=== PATIENT | female | born 1955 | race Caucasian/White ===

== ENCOUNTER 2018-10-10 10:53 | Inpatient (IN) | END 2018-10-11 16:40 | disposition home or self-care (01) | DRG 581 ==

== ENCOUNTER 2018-11-03 15:47 | Inpatient (IN) | payer BC ==
[~2018-11-03] VITALS: Ht 157.5 cm; Wt 65.6 kg
[~2018-11-03 15:47] MED LIST: ACET500C5 PO; DOCU-144 PO; LEVO100T82 PO
[2018-11-03] MEDS: morphine 4 MG/ML VIAL IV STA ×2 (18:35→18:59)
[2018-11-03] MEDS ORDERED: SOD CHLORIDE 0.9% 1,000 ML IV STA (18:35)
[2018-11-03] MEDS ORDERED: CEFTRIAXONE 1 GM/50 ML (PMX) 50 ML IVPB STA (18:35)
[2018-11-03] MEDS: ONDANSETRON 4 MG INJ IV STA ×2 (18:35→18:59)
[2018-11-03] MEDS ORDERED: CLIN300C10 PO (18:53)
--- NOTE | 2018-11-03 19:03 | ERD ---
ER Documentation Chief Complaint Chief Complaint Sent from Dr Martinez office for Eval and Admit Postop problems HPI 63-year-old woman complains of left lateral breast pain, swelling, redness, recent purulent discharge status post partial left mastectomy about 3 weeks ago. She was referred here by her surgeon's office for evaluation and admission. She has been using clindamycin 3 times daily for the last 5-6 days without relief. She denies fevers or chills, no chest pain or shortness of breath, no headache or blurry vision, no vomiting or diarrhea ROS All systems reviewed and are negative except as per history of present illness. Medications Home Meds Active Scripts Acetaminophen* (Tylophen*) 500 Mg Capsule, 500 MG PO Q6H PRN for PAIN for 30 Days, TAB Prov:MIMA GARCÍA MD 10/11/18 Reported Medications Clindamycin Hcl* (Clindamycin Hcl*) 300 Mg Capsule, 300 MG PO TID, CAP FOR 10 DAYS,END DATE 11/07/18 11/03/18 Levothyroxine Sodium* (Levoxyl*) 100 Mcg Tablet, 100 MCG PO BEFORE BREAKFAST, #30 TAB 10/10/18 Discontinued Scripts Docusate Sodium* (Colace*) 100 Mg Capsule, 100 MG PO BID for 10 Days, #60 CAP Prov:MIMA GARCÍA MD 10/11/18 Allergies Allergies: Coded Allergies: No Known Allergy (Unverified , 11/03/18) PMhx/Soc Hypothyroidism, breast cancer History of Surgery: No Anesthesia Reaction: No Hx Neurological Disorder: No Hx Respiratory Disorders: No Hx Cardiac Disorders: No Hx Psychiatric Problems: No Hx Miscellaneous Medical Probl: Yes (l. breast mass) Hx Alcohol Use: No Hx Substance Use: No Hx Tobacco Use: No FmHx Family History: No diabetes Physical Exam Vitals Vital Signs Date Temp Pulse Resp B/P (MAP) Pulse Ox O2 O2 Flow FiO2 Time Delivery Rate 11/03/18 97.4 72 20 152/69 97 15:52 (96) Physical Exam Const: No acute distress, afebrile Head: Atraumatic Eyes: Normal Conjunctiva ENT: Normal External Ears, Nose and Mouth. Neck: Full range of motion. No meningismus. Resp: Clear to auscultation bilaterally Cardio: Regular rate and rhythm, no murmurs Abd: Soft, non tender, non distended. Normal bowel sounds Skin: Skin over the left lateral mastectomy scar is indurated, erythematous, tender to touch with mild purulent discharge Back: No midline or flank tenderness Ext: No cyanosis, or edema Neur: Awake and alert x3, no focal deficits or facial asymmetry Psych: Normal Mood and Affect Result Diagram: 11/03/18190911/03/181909 Results 24 hrs Laboratory Tests Test 11/03/18 19:10 White Blood Count 8.1 10^3/ul Red Blood Count 4.22 10^6/ul Hemoglobin 12.6 g/dl Hematocrit 37.8 % Mean Corpuscular Volume 89.6 fl Mean Corpuscular Hemoglobin 29.9 pg Mean Corpuscular Hemoglobin Concent 33.3 g/dl Red Cell Distribution Width 12.9 % Platelet Count 279 10^3/UL Mean Platelet Volume 10.9 fl Immature Granulocytes % 0.900 % Neutrophils % 67.0 % Lymphocytes % 24.0 % Monocytes % 6.0 % Eosinophils % 1.5 % Basophils % 0.6 % Nucleated Red Blood Cells % 0.0 /100WBC Immature Granulocytes # 0.070 10^3/ul Neutrophils # 5.4 10^3/ul Lymphocytes # 1.9 10^3/ul Monocytes # 0.5 10^3/ul Eosinophils # 0.1 10^3/ul Basophils # 0.1 10^3/ul Nucleated Red Blood Cells # 0.0 10^3/ul Sodium Level 143 mmol/L Potassium Level 4.9 mmol/L Chloride Level 105 mmol/L Carbon Dioxide Level 22 mmol/L Anion Gap 16 Blood Urea Nitrogen 14 mg/dl Creatinine 0.44 mg/dl Est Glomerular Filtrat Rate mL/min > 60 mL/min Glucose Level 110 mg/dl Calcium Level 9.5 mg/dl Current Medications Medications Dose Sig/Clover Start Time Status Last (Trade) Ordered Route PRN Stop Time Admin Dose Reason Admin Sodium 1,000 ml @ Q1H STAT 11/03/18 DC 11/03/18 Chloride 1,000 mls/hr IV 18:35 18:58 11/03/18 19:34 Morphine 4 mg ONCE STAT 11/03/18 DC Sulfate IV 18:35 (morphine) 11/03/18 18:40 Ondansetron 4 mg ONCE STAT 11/03/18 DC HCl (Zofran IV 18:35 Inj) 11/03/18 18:40 Ceftriaxone 50 ml @ ONCE STAT 11/03/18 DC 11/03/18 Sodium 100 mls/hr IVPB 18:35 18:59 11/03/18 19:04 Procedures/MDM IV line was established patient was placed on secured entrance monitor rhythm strip revealed a sinus rhythm at about 80 bpm with upright P and T waves. Patient was afebrile I administered 1 L normal saline IV, ceftriaxone 1 g IV and vancomycin 1 g IV, morphine 4 mg IV, Zofran 4 mg IV. Chest X-ray 1V Interpreted by me: Soft Tissue: No acute abnormalities Bones: No acute abnormalities Mediastinum/Cardiac Silhouette/Lungs: No acute abnormalities CBC and electrolytes were normal, coagulation profile normal. I administered 1 L normal saline IV, morphine 4 mg IV, Zofran 4 mg IV, ceftriaxone 1 g IV, vancomycin 1 g IV. Patient will be admitted to [facility] for continued medical management, IV antibiotics, and possible surgical debridement. Departure Diagnosis: Primary Impression: Cellulitis of breast Additional Impression: Postoperative infection Encounter type: initial encounter Postoperative infection type: superfi cial incisional surgical site Qualified Codes: T81.41XA - Infection following a procedure, superficial incisional surgical site, initial encounter Condition: STEFFANIE Bazzi MD Nov 03, 2018 19:03
[2018-11-03] MEDS ORDERED: VANCOMYCIN 1 GM (PMX) 250 ML IVPB ONE (19:30)
[2018-11-03 21:20] VITALS: BP 142/63; PULSE 80; RESP 18
--- NOTE | 2018-11-03 21:30 | NUR ---
RN NOTES ADMITTED PT FROM ER,PT AWAKE ALERT X4.ADIMITTED WITH LEFT BREAST CELLULITIS.PT S/P LEFT BREAST MASS REMOVAL.DENIES ANY PAIN AT THIS TIME.WILL CONTINUE PLAN OF CARE.NEEDS ATTENDED
[2018-11-03 22:01] VITALS: Ht 157.5 cm; Wt 65.6 kg
[2018-11-03] MEDS ORDERED: HYDROCODONE/APAP (5/325) TAB PO PRN (22:30)
[2018-11-03] MEDS ORDERED: SOD CHLORIDE 0.9% 1,000 ML IV SCH (22:30)
[2018-11-03] MEDS ORDERED: ACETAMINOPHEN 500 MG TAB PO PRN (22:30)
[2018-11-04 02:05] VITALS: BP 120/58; PULSE 75; RESP 16
[2018-11-04] MEDS: LEVOTHYROXINE 100 MCG TAB PO SCH (06:03)
--- NOTE | 2018-11-04 06:27 | NUR ---
SHIFT REPORT PT STABLE DURING THE NIGHT,DENIES ANY PAIN.SLEPT WELL.CONTINUE ON IV ANTIBIOTIC ORDERED.WILL CONTINUE TO MONITOR.NEEDS ATTENDED.CALL LIGHT AT REACH.HOURLY ROUNDING DONE
[2018-11-04 07:28] VITALS: BP 129/72; PULSE 71; RESP 18
[2018-11-04] MEDS ORDERED: CEFTRIAXONE 1 GM INJ IVPB SCH (09:00)
[2018-11-04] MEDS ORDERED: CLINDAMYCIN 300 MG CAP PO SCH (09:00)
[2018-11-04] MEDS ORDERED: CLINDAMYCIN 300 MG/D5W (PMX) 50 ML IVPB SCH (10:30)
[2018-11-04] MEDS ORDERED: NS + KCL 20 MEQ 1,000 ML IV SCH (10:30)
--- NOTE | 2018-11-04 11:03 | HP ---
MINORALYSSASelenaROSA MARIA 11/04/18 1102: Date/Time of Note Date/Time of Note DATE: 11/04/18 TIME: 11:02 Assessment/Plan VTE Prophylaxis Pharmacological prophylaxis: NA/contraindicated Pharm contraindication: surgical contra Lines/Catheters IV Catheter Type (from Nrsg): Peripheral IV Urinary Cath still in place: No Assessment/Plan Hospital Course 1. Left breast postop pain and possible abscess 2. S/pt left partial mastectomy and axillary dissection and using sentinel lymph node. 3. Hypothyroidism. 4. Constipation 5. hx of breast cancer. 6. Anemia Assessment/Plan - med/surg. -MRI left breast without contrast -c/w IV fluids, pain medications. -surgical consult by Dr. Cxo. -Gi prophylaxis start Protonix -NPO -DVT prophylaxis SCD, possible surgical interventions Result Diagram: 11/04/18 0554 11/04/18 0554 Results 24hrs Laboratory Tests Test 11/03/18 19:10 11/03/18 20:03 11/04/18 05:54 White Blood Count 8.1 5.8 # Red Blood Count 4.22 3.78 L Hemoglobin 12.6 11.4 L Hematocrit 37.8 33.5 L Mean Corpuscular Volume 89.6 88.6 Mean Corpuscular Hemoglobin 29.9 30.2 Mean Corpuscular 33.3 34.0 Hemoglobin Concent Red Cell Distribution Width 12.9 13.1 Platelet Count 279 275 Mean Platelet Volume 10.9 H 10.1 Immature Granulocytes % 0.900 H 0.500 H Neutrophils % 67.0 62.6 Lymphocytes % 24.0 28.6 Monocytes % 6.0 6.1 Eosinophils % 1.5 1.7 Basophils % 0.6 0.5 Nucleated Red Blood Cells % 0.0 0.0 Immature Granulocytes # 0.070 H 0.030 Neutrophils # 5.4 3.6 Lymphocytes # 1.9 1.7 Monocytes # 0.5 0.4 Eosinophils # 0.1 0.1 Basophils # 0.1 0.0 Nucleated Red Blood Cells # 0.0 0.0 Sodium Level 143 144 Potassium Level 4.9 4.1 Chloride Level 105 108 Carbon Dioxide Level 22 26 Anion Gap 16 H 10 # Blood Urea Nitrogen 14 11 Creatinine 0.44 0.50 Est Glomerular Filtrat > 60 > 60 Rate mL/min Glucose Level 110 103 Calcium Level 9.5 9.0 Prothrombin Time 12.8 Prothrombin Time Ratio 1.0 INR International 0.95 Normalized Ratio Activated Partial Thromboplast 28.0 Time HPI/ROS Admit Date/Time Admit Date/Time Nov 03, 2018 at 19:24 Hx of Present Illness This is a 63-year-old female with a past medical history of hypothyroidism, left breast cancer with s/p radical mastectomy and axillary dissection presented in ER with purulent discharge status post partial left mastectomy about 3 weeks ago. She left with 2 drains that were consecutively removed by dr Cox. After that in 2 days she developed chills and pain, there were some serous discharge. She was referred here by her surgeon's office for evaluation and admission. She has been using clindamycin 3 times daily for the last 5-6 days without relief. ROS pain in left breast scar PMH/Family/Social Past Medical History Medications Current Medications Acetaminophen/ Hydrocodone Bitart ([place] (5/325)) 1 tab Q6H PRN PO MODERATE PAIN LEVEL 4-6; Start 11/03/18 at 22:30 Levothyroxine Sodium (Synthroid) 100 mcg DAILY@06 PO Last administered on 11/04/18at 06:03; Admin Dose 100 MCG; Start 11/04/18 at 06:00 Acetaminophen (Tylenol Tab) 500 mg Q6H PRN PO MILD PAIN(1-3)OR ELEVATED TEMP; Start 11/03/18 at 22:30 Ceftriaxone Sodium 50 ml @ 100 mls/hr Q24H IVPB ; Start 11/04/18 at 19:00 Clindamycin HCl/ Dextrose 50 ml @ 100 mls/hr Q6 IVPB Last administered on 11/04/18at 10:42; Admin Dose 100 MLS/HR; Start 11/04/18 at 10:30 Potassium Chloride/Sodium Chloride 1,000 ml @ 125 mls/hr Q8H IV ; Start 11/04/18 at 10:30 Coded Allergies: No Known Allergy (Unverified , 11/03/18) Past Surgical History Past Surgical Hx: other (left breast mastectomy) Social History Alcohol Use: none Smoking Status: Never smoker Drug Use: none Exam/Review of Systems Vital Signs Vitals Vital Signs Date Temp Pulse Resp B/P (MAP) Pulse Ox O2 O2 Flow FiO2 Time Delivery Rate 11/04/18 98.6 71 18 129/72 99 07:28 (91) 11/03/18 Room Air 20:49 Intake and Output 11/03/18 11/03/18 11/04/18 1414:59 22:59 06:59 IntakeIntake Total 240 ml 120 ml BalanceBalance 240 ml 120 ml Exam Exam breast left with surgical scars and focal redness, no d/c Constitutional: alert, oriented Respiratory: clear to auscultation Cardiovascular: regular rate and rhythm Gastrointestinal: soft MIMA GARCÍA MD 11/04/18 1630: Assessment/Plan Assessment/Plan Assessment/Plan Seen and examined with patient financial representative IV antibiotics Surgical drainage tomorrow Result Diagram: 11/04/18 0554 11/04/18 0554 PMH/Family/Social Past Medical History Coded Allergies: No Known Allergy (Unverified , 11/03/18) ROSA MARIA KLEIN Nov 04, 2018 11:02 MIMA GARCÍA MD Nov 04, 2018 16:30
[2018-11-04] MEDS ORDERED: hydrALAzine 20 MG INJ IV PRN (13:30)
[2018-11-04] MEDS ORDERED: VANCOMYCIN IV PER PHARMACY XX SCH (14:30)
--- NOTE | 2018-11-04 14:34 | NUR ---
VANCOMYCIN PER RX 63 yo FEMALE Allergy: NKA 52 65.6kg CC: left breast post-op abscess Other antibiotics: Ceftriaxone Labs: WBC 5.8 BUN and creatinine 11/0.5 A/P: Vancomycin 750mg ivpb q12h Addendum: 11/04/18 at 1442 by UZIEL MCDOWELL [facility] A/P: Change Vancomycin 750mg ivpb q12h to 1250mg ivpb q24h
[2018-11-04] MEDS ORDERED: VANCOMYCIN 750 MG (PMX) 250 ML IVPB SCH (15:00)
[2018-11-04] MEDS: PANTOPRAZOLE 40 MG INJ IV SCH (16:08)
[2018-11-04] MEDS: VANCOMYCIN 1.25 GM in SOD CHLORIDE 0.9% 250 ML IVPB SCH (16:08)
[2018-11-04 16:17] VITALS: BP 118/79; PULSE 72; RESP 20
--- NOTE | 2018-11-04 17:11 | CONS ---
DATE OF ADMISSION: 11/03/2018 DATE OF CONSULTATION: 11/04/2018 REASON FOR CONSULTATION: Postop complications on the left breast, possible abscess formation. HISTORY OF PRESENT ILLNESS AND CHIEF COMPLAINT: This is a 63-year-old female, who apparently had lef t breast partial mastectomy for cancer with axillary about 3 to 4 weeks ago in this hospital. The jarocho crowder had 2 Efrain-Bell drains, which was removed about 2 weeks ago and following removal of that, a couple of days later, the patient started having fever and chills and gradually felt swelling on th e site of the breast. So, referred to Dr. Cox' office and apparently they aspirated some fluid and they started the patient on antibiotic, clindamycin 300 mg p.o. t.i.d., but apparently it did not he lp and the patient felt some pain and also some swelling and some redness and yesterday, the pain was much more. So, she came to the office, and then from there was sent to the emergency room, was admi tted for IV antibiotic treatment. PAST MEDICAL HISTORY: As was mentioned, the patient has history of hypothyroidism and is on suppleme ntal medications: Also, the patient has had history of recent operation for cancer of left breast. ALLERGIES: NO KNOWN ALLERGIES. REVIEW OF SYSTEMS: As was mentioned above. PHYSICAL EXAMINATION: GENERAL: The patient is alert, awake, oriented x3. VITAL SIGNS: Today, temperature maximum 98.6, heart rate 75, respirations 18, blood pressure 129/72, saturation 99% on room air. On admission last night, temperature maximum was 99 and heart rate was maximum 88.0. HEAD: Normocephalic. NECK: Trachea is in midline. HEART: Regular rhythm. No murmur. LUNGS: Clear to auscultation. ABDOMEN: Soft. BREASTS: Chest wall on the left side, there is evidence of a scar of recent operation. There is an area of induration, cellulitis, redness and mild tenderness at the clip. The patient states that thi s was much more tender before and the redness was much more, but since she has come to the hospital s nicolás last night, now, the redness has decreased and tenderness has decreased. The area maybe is abou t 4 cm x 2.3 cm and irregular borders. There is no fluctuation at this time. The wound was cleaned with alcohol by myself. Dressing was changed and upon squeezing on the wound, there was about a coup le of drops of yellowish fluid, but it did not look like very purulent came out. The culture was ronal en from that one and sent for evaluation. EXTREMITIES: Lower extremity negative. LABORATORY DATA: On admission, WBC was 8100 with 67% segmented, hemoglobin 12.6, hematocrit 37.8. T alanis morning, WBC is 5800 with 62% segmented, normal differential, hemoglobin 11.4, hematocrit 33. C hemistry: The same is normal sodium, potassium, BUN, and creatinine. IMPRESSION: Here is a 63-year-old lady status post left breast partial mastectomy with axillary diss ection, who has had Efrain-Bell drains in place for 2 weeks and then was removed 2 weeks ago. The patient now presents with some cellulitis, erythema, redness and tenderness, which has got to about 3 0% better since admission last night. On admission from the emergency room, the patient received cef triaxone and vancomycin IV. PLAN: Therefore, at this time, I think the patient has only cellulitis with minimal induration and s light phlegmon subcutaneously. No abscess. I do not feel presence of any abscess and it appears kalen t the patient is responding to IV antibiotics. Therefore, we are going to continue ceftriaxone and v ancomycin IV, and we will keep the patient n.p.o. tonight after midnight. We will schedule the patie nt for possible I and D tomorrow. I will reevaluate the patient tomorrow, on Wednesday morning, and jewell driscoll a final decision on that time whether to continue antibiotics or proceed with incision. Dictated By: JUDSON SOLIMAN MD PS/NTS Conf#: [id number] DID#: [id number] CC: JOY CORTEZ MD;*EndCC*
[2018-11-04] MEDS: SOD CHLORIDE 0.9% 1,000 ML IV SCH (18:19)
--- NOTE | 2018-11-04 18:39 | NUR ---
END OF SHIFT NOTES: PT STABLE, ALERT & ORIENTED X4. NO DISTRESS NOTED. PENDING MRI LEFT BREAST, PENDING SX, NPO AFTER MIDNIGHT, PT AWARE OF PLAN OF CARE, AT BEDSIDE. INSTRUCTED PT TO CALL FOR ASSISTANCE. VS WNL.HOURLY ROUNDING. CALL LIGHT WITHIN REACH.ALL NEEDS MET. NO NEW COMPLAINTS.
[2018-11-04 19:59] VITALS: BP 139/64; PULSE 75; RESP 18
[2018-11-04] MEDS: CEFTRIAXONE 1 GM/50 ML (PMX) 50 ML IVPB SCH (20:39)
--- NOTE | 2018-11-04 22:48 | NUR ---
scheduled surgery for kay- cancelled dr. thibodeaux called. order to cancel surgery, to notify patient and nursing manufacturing supervisor 2nd shift and resume diet in am. patient notified- was happy about it. nursing manufacturing supervisor 2nd shift sapna informed. primary nurse informed.
[2018-11-05 01:53] VITALS: BP 126/60; PULSE 63; RESP 18
[2018-11-05] MEDS: SOD CHLORIDE 0.9% 1,000 ML IV SCH ×3 (02:30→19:09)
--- NOTE | 2018-11-05 05:12 | NUR ---
SHIFT REPORT NO SIGNIFICANT CHANGE OF CONDITION NOTED.STABLE DURING THE NIGHT.NO DRAINAGE NOTED ON THE LEFT BREAST INCISION SITE.DENIES ANY PAIN.WILL CONTINUE IV ANTIBIOTIC ORDERED.NEEDS ATTENDED.CALL LIGHT AT REACH.
[2018-11-05] MEDS: PANTOPRAZOLE 40 MG INJ IV SCH (06:02)
[2018-11-05] MEDS: LEVOTHYROXINE 100 MCG TAB PO SCH (06:02)
[2018-11-05 07:39] VITALS: BP 128/63; PULSE 68; RESP 16
[2018-11-05 13:48] VITALS: BP 133/62; PULSE 68; RESP 17
--- NOTE | 2018-11-05 14:12 | PN ---
Date/Time of Note Date/Time of Note DATE: 11/05/18 TIME: 14:12 Assessment/Plan VTE Prophylaxis Risk score (from [facility] [place]0 risk: 2 SCD applied (from [facility] [place]): Yes Pharmacological prophylaxis: NA/contraindicated Pharm contraindication: surgical contra Lines/Catheters IV Catheter Type (from [facility]): Peripheral IV Urinary Cath still in place: No Assessment/Plan Hospital Course 1. Left breast postop pain and possible abscess 2. S/pt left partial mastectomy and axillary dissection and using sentinel lymph node. 3. Hypothyroidism. 4. Constipation 5. hx of breast cancer. 6. Anemia Assessment/Plan - med/surg. -iron supplement -staph. infection is growing from the wound -c.w vanco and Ceftriaxone. -MRI left breast without contrast pending -c/w pain medications. -surgical consult by Dr. Cox. -Gi prophylaxis Protonix -regular diet -DVT prophylaxis SCD, possible surgical interventions Result Diagram: 11/05/18 0444 11/05/18 0444 Results 24hrs Laboratory Tests Test 11/04/18 19:30 11/05/18 04:44 Urine Test NEGATIVE White Blood Count 5.3 Red Blood Count 3.82 L Hemoglobin 11.4 L Hematocrit 33.3 L Mean Corpuscular Volume 87.2 Mean Corpuscular Hemoglobin 29.8 Mean Corpuscular Hemoglobin Concent 34.2 Red Cell Distribution Width 13.2 Platelet Count 268 Mean Platelet Volume 10.2 Immature Granulocytes % 0.400 Neutrophils % 60.2 Lymphocytes % 29.6 Monocytes % 6.3 Eosinophils % 2.7 Basophils % 0.8 Nucleated Red Blood Cells % 0.0 Immature Granulocytes # 0.020 Neutrophils # 3.2 Lymphocytes # 1.6 Monocytes # 0.3 Eosinophils # 0.1 Basophils # 0.0 Nucleated Red Blood Cells # 0.0 Sodium Level 142 Potassium Level 3.8 Chloride Level 110 Carbon Dioxide Level 25 Anion Gap 7 Blood Urea Nitrogen 11 Creatinine 0.50 Est Glomerular Filtrat Rate mL/min > 60 Glucose Level 111 Hemoglobin A1c 5.5 Calcium Level 8.9 Subjective 24 Hr Interval Summary Constitutional: no complaints, improved Exam/Review of Systems Vital Signs Vitals Vital Signs Date Temp Pulse Resp B/P (MAP) Pulse Ox O2 O2 Flow FiO2 Time Delivery Rate 11/05/18 98.5 68 17 133/62 97 Room Air 13:48 (85) Intake and Output 11/04/18 11/04/18 11/05/18 1515:00 23:00 07:00 IntakeIntake Total 100 ml 1735 ml 1050 ml BalanceBalance 100 ml 1735 ml 1050 ml Exam left breast with surgical scars and redness Constitutional: alert, oriented Respiratory: clear to auscultation Cardiovascular: regular rate and rhythm Gastrointestinal: soft Medications Medications Current Medications Acetaminophen/ Hydrocodone Bitart ([place] (5/325)) 1 tab Q6H PRN PO MODERATE PAIN LEVEL 4-6; Start 11/03/18 at 22:30 Levothyroxine Sodium (Synthroid) 100 mcg DAILY@06 PO Last administered on 11/05/18at 06:02; Admin Dose 100 MCG; Start 11/04/18 at 06:00 Acetaminophen (Tylenol Tab) 500 mg Q6H PRN PO MILD PAIN(1-3)OR ELEVATED TEMP; Start 11/03/18 at 22:30 Ceftriaxone Sodium 50 ml @ 100 mls/hr Q24H IVPB Last administered on 11/04/18at 20:39; Admin Dose 100 MLS/HR; Start 11/04/18 at 19:00 Pantoprazole (Protonix Iv) 40 mg DAILY@06 IV Last administered on 11/05/18at 06:02; Admin Dose 40 MG; Start 11/04/18 at 13:00 Hydralazine HCl (Apresoline) 5 mg Q6H PRN IV SBP above 160; Start 11/04/18 at 13:30 Vancomycin HCl (Vanco Iv Per Pharmacy) VANCOMYCIN PER PHARMACY PER PROTOCOL XX ; Start 11/04/18 at 14:30 Vancomycin HCl 1.25 gm/Sodium Chloride 250 ml @ 83.333 mls/ hr Q24H IVPB Last administered on 11/04/18at 16:08; Admin Dose 83.333 MLS/HR; Start 11/04/18 at 15:30 Sodium Chloride 1,000 ml @ 100 mls/hr Q10H IV Last administered on 11/05/18at 06:15; Admin Dose 100 MLS/HR; Start 11/04/18 at 16:30 ROSA MARIA KLEIN Nov 05, 2018 14:12
[2018-11-05] MEDS: VANCOMYCIN 1.25 GM in SOD CHLORIDE 0.9% 250 ML IVPB SCH (15:25)
[2018-11-05] MEDS: POLYSACCHARIDE IRON COMPLEX CAP PO SCH (18:03)
--- NOTE | 2018-11-05 18:57 | NUR ---
END OF SHIFT NOTES: PT STABLE, ALERT & ORIENTED X4. NO DISTRESS NOTED. ANTICIPATING D/C TOMORROW, DRESSING DRY/INTACT, NO DRAINAGE NOTED, PT AMBULATED THE PRINGLE, NO C/O PAIN, INSTRUCTED PT TO CALL FOR ASSISTANCE. VS WNL.HOURLY ROUNDING. CALL LIGHT WITHIN REACH.ALL NEEDS MET. NO NEW COMPLAINTS
[2018-11-05 19:58] VITALS: BP 139/67; PULSE 72; RESP 16
--- NOTE | 2018-11-05 20:05 | PN ---
DATE: 11/05/2018 SUBJECTIVE: Feels much better. States that there has been no drainage any more from the left breast incision line. No fever, no chills, no nausea, no vomiting. Has been out of bed, walking around. OBJECTIVE GENERAL: Awake, alert, oriented x3. VITAL SIGNS: Temperature maximum today 98.6, heart rate 68, respirations 16, blood pressure 128/63, saturation 98% room air. LABORATORY DATA: Chemistry within normal limits. Hematology: WBC 5300 with 60% neutrophils, segmen aaron differential normal, hemoglobin and hematocrit are stable. PHYSICAL EXAMINATION: HEART: Regular. LUNGS: Clear. CHEST WALL: The erythema is much less. There is no tenderness. There is no drainage. I think the erythema and swelling has decreased about 70%. The patient is on IV antibiotic vancomycin and ceftriaxone. The culture that we sent yesterday so fa r has not grown anything and has not showed any bacteria on Gram stain. Apparently, patient had an M RI of the breast last night, but the report is not available on the computer yet. PLAN: I would suggest to continue IV antibiotics at least for a couple of more days and then decide for discharging the patient probably on Wednesday. Dictated By: JUDSON SOLIMAN MD PS/NTS Conf#: [id number] DID#: [id number] CC: JOY CORTEZ MD;*End*
[2018-11-05] MEDS: CEFTRIAXONE 1 GM/50 ML (PMX) 50 ML IVPB SCH (20:36)
[2018-11-06] MEDS: POLYSACCHARIDE IRON COMPLEX CAP PO SCH ×2 (00:45→10:30)
[2018-11-06 02:30] VITALS: BP 126/65; PULSE 66; RESP 18
[2018-11-06] MEDS: PANTOPRAZOLE 40 MG INJ IV SCH (05:55)
[2018-11-06] MEDS: LEVOTHYROXINE 100 MCG TAB PO SCH (05:55)
[2018-11-06] MEDS: SOD CHLORIDE 0.9% 1,000 ML IV SCH ×2 (05:55→18:25)
--- NOTE | 2018-11-06 06:25 | NUR ---
EOSS No acute changes in patient's condition. VSS. A &Ox4. All due meds given. Pt denies pain. Dressing dry and intact. No drainage noted. Spouse sleeping at bedside. Hourly rounding done. Bed left in lowest position with bed alarm on. Call light left within reach.
[2018-11-06 07:00] VITALS: BP 139/71; PULSE 66; RESP 18
[2018-11-06 07:45] VITALS: BP 125/66; PULSE 65; RESP 14
[2018-11-06 14:40] VITALS: BP 130/64; PULSE 69; RESP 16
[2018-11-06] MEDS: VANCOMYCIN 1.25 GM in SOD CHLORIDE 0.9% 250 ML IVPB SCH (15:24)
--- NOTE | 2018-11-06 15:48 | PDOCDIS ---
Discharge Instructions CONDITION [id number] Patient Condition: [id number] Stable HOME CARE INSTRUCTIONS: [id number] Special Diet: [id number] Regular ACTIVITY: [id number] Activity Restrictions: [id number] Slowly Increase Activity FOLLOW UP/APPOINTMENTS Follow-up Plan f/u own pcp [address] olivares 1 wk JOY CORTEZ MD Nov 06, 2018 15:48
[2018-11-06] MEDS ORDERED: LEVO100T8 PO (15:50)
[2018-11-06] MEDS ORDERED: DOXY100T21 PO (15:50)
[2018-11-06] MEDS ORDERED: NIF150 PO (15:50)
--- NOTE | 2018-11-06 17:44 | PN ---
DATE: 11/06/2018 SUBJECTIVE: The patient states that she feels much better. No more drainage. Has been walking around. Tolerating diet. No chills, no fever. OBJECTIVE: GENERAL: Awake, alert, oriented x3. VITAL SIGNS: Temperature maximum today 98.5, heart rate 66, respiration 18, blood pressure 126/65, saturation 98% on room air. HEART: Regular. LUNGS: Clear. ABDOMEN: Soft. Dressing was removed. The line of incision is clean. There is no drainage. There is cellulitis and inflammation. To me, it is about 80% better. The patient has been receiving ceftriaxone and vancomycin IV. LABORATORY DATA: Today, WBC is 5200 with 58% segmented, normal differential. Hemoglobin is stable at 11.2. The MRI of breasts has been done, but the report is not back in the computer. I called and checked with the radiologist guard immigration, , he said that he does not think that there is any abscess. There is some inflammation and edema of the tissues over the breast which of course is expected because the patient has cellulitis and some inflammation of the subcutaneous tissue. Overall, it appears that the patient has responded to antibiotic treatment and she is willing and eager to go home; therefore we are going to wait until 7:00 p.m. when she has the next dose of Rocephin IV and then she is going to be discharged. Dr. Cortez, primary care physician has written a prescription for antibiotic and pain medication and other medication that patient used to take at home. The patient has an appointment to see Dr. Cox in his office on 11/18/2018. The patient was advised to use warm soak over the breast t.i.d. every time for 15 minutes and if any problem or she gets fever or swelling gets worse or erythema gets worse, then either call the office and go and see Dr. Cox in the office sooner than expected appointment time or go to the emergency room. Dictated By: JUDSON SOLIMAN MD PS/NTS Conf#: [id number] DID#: [id number] CC: JOY CORTEZ MD;*EndCC* MTDD
--- NOTE | 2018-11-06 17:55 | PN ---
Date/Time of Note Date/Time of Note DATE: 11/06/18 TIME: 17:54 Assessment/Plan VTE Prophylaxis Risk score (from Ns)>0 risk: 4 SCD applied (from [facility]): Yes SCD contraindicated: other Pharmacological prophylaxis: other Lines/Catheters IV Catheter Type (from [facility]): Peripheral IV Urinary Cath still in place: No Assessment/Plan Hospital Course 1. Left breast postop pain and possible cellulites 2. S/pt left partial mastectomy and axillary dissection and using sentinel lymph node. 3. Hypothyroidism. 4. Constipation 5. hx of breast cancer. plan antibiotic Result Diagram: 11/06/18 0503 11/05/18 0444 Results 24hrs Laboratory Tests Test 11/06/18 05:03 White Blood Count 5.2 Red Blood Count 3.75 L Hemoglobin 11.2 L Hematocrit 33.3 L Mean Corpuscular Volume 88.8 Mean Corpuscular Hemoglobin 29.9 Mean Corpuscular Hemoglobin Concent 33.6 Red Cell Distribution Width 12.8 Platelet Count 266 Mean Platelet Volume 10.1 Immature Granulocytes % 0.200 Neutrophils % 58.3 Lymphocytes % 31.3 Monocytes % 6.5 Eosinophils % 3.1 Basophils % 0.6 Nucleated Red Blood Cells % 0.0 Immature Granulocytes # 0.010 Neutrophils # 3.0 Lymphocytes # 1.6 Monocytes # 0.3 Eosinophils # 0.2 Basophils # 0.0 Nucleated Red Blood Cells # 0.0 Subjective 24 Hr Interval Summary Constitutional: no complaints Gastrointestinal: no complaints Genitourinary: no complaints Exam/Review of Systems Vital Signs Vitals Vital Signs Date Temp Pulse Resp B/P (MAP) Pulse Ox O2 O2 Flow FiO2 Time Delivery Rate 11/06/18 98.0 69 16 130/64 97 14:40 (86) 11/05/18 Room Air 13:48 Intake and Output 11/05/18 11/05/18 11/06/18 1515:00 23:00 07:00 IntakeIntake Total 480 ml 1340 ml 1150 ml BalanceBalance 480 ml 1340 ml 1150 ml Exam Neck: supple Respiratory: clear to auscultation Cardiovascular: regular rate and rhythm Gastrointestinal: soft, bowel sounds (+) Skin: other (left side redness better) Medications Medications Current Medications Acetaminophen/ Hydrocodone Bitart (Purchase (5/325)) 1 tab Q6H PRN PO MODERATE PAIN LEVEL 4-6; Start 12/27/18 at 22:30 Levothyroxine Sodium (Synthroid) 100 mcg DAILY@06 PO Last administered on 11/06/18at 05:55; Admin Dose 100 MCG; Start 11/04/18 at 06:00 Acetaminophen (Tylenol Tab) 500 mg Q6H PRN PO MILD PAIN(1-3)OR ELEVATED TEMP; Start 11/03/18 at 22:30 Ceftriaxone Sodium 50 ml @ 100 mls/hr Q24H IVPB Last administered on 11/05/18a t 20:36; Admin Dose 100 MLS/HR; Start 11/04/18 at 19:00 Pantoprazole (Protonix Iv) 40 mg DAILY@06 IV Last administered on 11/06/18at 05:55; Admin Dose 40 MG; Start 11/04/18 at 13:00 Hydralazine HCl (Apresoline) 5 mg Q6H PRN IV SBP above 160; Start 11/04/18 at 13:30 Vancomycin HCl (Vanco Iv Per Pharmacy) VANCOMYCIN PER PHARMACY PER PROTOCOL XX ; Start 11/04/18 at 14:30 Vancomycin HCl 1.25 gm/Sodium Chloride 250 ml @ 83.333 mls/ hr Q24H IVPB Last administered on 11/06/18at 15:24; Admin Dose 83.333 MLS/HR; Start 11/04/18 at 15:30 Sodium Chloride 1,000 ml @ 100 mls/hr Q10H IV Last administered on 11/06/18at 05:55; Admin Dose 100 MLS/HR; Start 11/04/18 at 16:30 Polysaccharide Iron Complex (Niferex-150) 1 cap BID PO Last administered on 11/06/18at 10:30; Admin Dose 1 CAP; Start 11/05/18 at 16:00 Miscellaneous Information (*Rx Drug Level Order Reminder*) VANC TROUGH @ 1,430 ONCE ONCE XX ; Start 11/07/18 at 14:30; Stop 11/07/18 at 14:31 JOY CORTEZ MD Nov 06, 2018 17:55
--- NOTE | 2018-11-06 18:26 | NUR ---
End of Shift Notes Received call from Dr Condon regarding patient's MRI report of left breast. Dr Martinez spoke with Dr Condon directly, no need for ultrasound at this time. Orders to be discharged home after rocephine IV dose tonight. All discharge instructions reviewed and understood, patient will follow up with Dr Cox on Wednesday.
[2018-11-06] MEDS: CEFTRIAXONE 1 GM/50 ML (PMX) 50 ML IVPB SCH (18:51)
--- NOTE | 2018-11-06 19:58 | NUR ---
Discharge Notes: Patient discharge to home accompanied by . Patient is alert and oriented x4 and aware about discharge instructions to follow up with Dr. Cox. All discharge paperworks given to patient and . IV line and ID band removed. Patient will be accompanied by DAWSON Burgess via wheelchair. Discharge belongings double check with patient and and discharge belonging sheet signed.
--- NOTE | 2018-11-07 16:32 | QN ---
Documentation Comment [id number] JOY CORTEZ MD Nov 07, 2018 16:32
--- NOTE | 2018-11-07 17:00 | DS ---
DATE OF ADMISSION: 11/03/2018 DATE OF DISCHARGE: 11/06/2018 HOSPITAL COURSE: The patient was admitted with history of left partial mastectomy, presented with ce llulitis of the left breast area. The patient was seen by Dr. Martinez in consultation and antibiotics were started. Wound care was given. The patient has Staphylococcus aureus from the wound. The pat ient's symptoms are resolving. The patient is cleared to be discharged home. DISCHARGE DIAGNOSES: Include: 1. Left breast cellulitis, status post left partial mastectomy. 2. Anemia. 3. Constipation. 4. Hypothyroidism. DISCHARGE MEDICATIONS: To continue: 1. Doxycycline. 2. Levothyroxine. 3. Niferex. 4. Tylenol. FOLLOWUP: Follow up with Dr. Cox and patient's primary care doctor as an outpatient. Dictated By: JOY MAHMOOD/NTS Conf#: [id number] DID#: [id number]
== END 2018-11-06 19:53 | disposition home or self-care (01) | DRG 863 ==
LOC: E/R 15:47 → 2NE 19:24 → EDBEDREQ 21:07
PROVIDERS: ADMIT Internal Medicine Nephrology; ATTEND Internal Medicine Nephrology
DX: T81.41XA Infection following a procedure, superficial incisional surgical site, initial encounter (principal); N61.0 Mastitis without abscess; E03.9 Hypothyroidism, unspecified; K59.00 Constipation, unspecified; D64.9 Anemia, unspecified; Y83.9 Surgical procedure, unspecified as the cause of abnormal reaction of the patient, or of later complication, without mention of misadventure at the time of the procedure
CPT/HCPCS: 36415; 71045; 71550; 80048; 83036; 84703; 85025; 85610; 85730; 87070; 96374; C9113; J0696; J2270; J2405; J3370; J3480; J7030; J7050